=== PATIENT | female | born 1960 | race Caucasian/White ===

== ENCOUNTER → 2020-07-24 | Outpatient (CLI) | payer OTHER ==
--- NOTE | 2020-07-24 07:55 | MR ---
EXAMINATION TYPE: MR knee LT wo con DATE OF EXAM: 07/24/2020 COMPARISON: NONE HISTORY: Chronic Instability of Left Knee, pain, locking, fall injury one year ago. TECHNIQUE: Multiplanar, multisequence images of the knee is performed without IV contrast. FINDINGS: MEDIAL MENISCUS: Anterior and posterior horns are intact without tear. LATERAL MENISCUS: Anterior and posterior horns are intact without tear. CRUCIATE LIGAMENTS: The anterior and posterior cruciate ligaments are intact and unremarkable. COLLATERAL LIGAMENTS: The medial collateral ligament and lateral collateral ligament complex are inta ct and unremarkable. EXTENSOR MECHANISM: Visualized quadriceps and patellar tendons are intact. EFFUSION: Moderate size suprapatellar joint effusion. POPLITEAL CYST: Tiny popliteal/guzman cyst. TRICOMPARTMENT SPACES: Mild tricompartment joint space loss. No significant spurring. CARTILAGE: Tricompartment articular cartilage is preserved. BONE MARROW SIGNAL: Some overall heterogeneity. No suspicious edema. OTHER: Focal increase subcutaneous edema anterior superficial infrapatellar level. IMPRESSION: 1. No meniscal or ligamentous tear is seen. 2. Moderate suprapatellar joint effusion. 3. Mild tricompartment degenerative changes as detailed above. 4. Tiny popliteal cyst.
== END | disposition home or self-care (01) ==
LOC: RADMRIMAIN 06:02
PROVIDERS: ATTEND Nurse Practitioner Family
DX: M17.12 Unilateral primary osteoarthritis, left knee (principal); M71.22 Synovial cyst of popliteal space [Baker], left knee